=== PATIENT | female | born 1940 | race Caucasian/White ===

== ENCOUNTER 2016-05-08 19:07 | Emergency (ER) | payer MEDICARE, OTHER ==
[~2016-05-08] VITALS: Ht 160 cm; Wt 79.1 kg
[~2016-05-08 19:07] MED LIST: ATEN-39 PO; CALC-6 PO; CEPH500T PO; ELDERBERRY JUICE PO; FISH1CAP28 PO; LEVO100T85 PO; MOME13HF3 INH; MULT-795 PO; OMEP40CA52 PO; PROP10DR2 OP; SIMV20TA89 PO; [UNRECOGNIZED DRUG - CODE] OP
[2016-05-08 19:10] VITALS: Ht 160 cm; Wt 79.1 kg
--- OUTSIDE RECORDS SUMMARY | 2016-05-08 19:12 | XMS REPORT | Continuity of Care Document ---
Author Author [facility] Organization [facility] Address Unknown Phone Unavailable Support Name Relationship Address Phone JUNE, AWILDA M DO Caregiver [address] [address] Unavailable DENIS ESCALANTE DO Caregiver [address] [place] [address] Unavailable MOI BROUSSARD Next Of Kin [address] [place] [address] C Insurance Providers Guarantor Mamta Broussard Address [address] [place] [address] C Email DENIED/NO TO PT PORT Payer Other A Insurance Policy Number [id number] Subscriber's Name ZafarMamta Kavon Relationship 18 Self Group Number [id number] Effective Date 14 Payer Medicare Policy Number [id number] Subscriber's Name Mamta Broussard Relationship 18 Self Effective Date 06 Chief Complaint and Reason for Visit Chief Complaint Abdominal Pain Reason for Visit [id number] Problems Active Problems Medical Problem Onset Date Status HTN (hypertension) Unknown Hypercholesteremia Unknown Hypothyroidism Unknown Migraines Unknown Past Problems Medical Problem Onset Date UTI (urinary tract infection) Unknown Medications Current Home Medications Medication Dose Units Route Directions Days Qty Instructions Start Date Atenolol 50 Mg Tablet 50 Mg Oral Daily 12/10/07 Calcium Carbonate/Vitamin D3 (Os-Chepe 500+D Tablet) 1 Tab Tablet 1 Tab Oral Twice A Day 11/10/08 Carboxymethylcellulos/Glycerin (Optive Eye Drops) 30 Ml Drops 30 Ml Ophthalmic As Needed 12/10/07 Cephalexin 500 Mg Tablet 1 Tab Oral Four Times Daily 10 Days 40 Tablet 09/23/15 Elderberry Juice 1 T Oral Daily 12/10/07 Fish Oil/[place]-3 Fatty Acids ([place] 3 Fish Oil 1,000 Mg Cap) 1 Cap Capsule 1 Cap Oral Daily 12/10/07 Levothyroxine Sodium 100 Mcg Tablet 100 Mcg Oral Daily 12/10/07 Mometasone/Formoterol (Dulera 200 Mcg/5 Mcg Inhaler) 13 Gm Hfa.aer.ad 2 Puffs Inhalation As Needed 09/22/15 Multivitamins W-Minerals/Lut (Centrum Silver Tablet) 1 Tab Tablet 1 Tab Oral Daily 12/10/07 Omeprazole 40 Mg Capsule.dr 1 Cap Oral Daily 09/22/15 Propylene Glycol/Peg 400 (Systane Ultra 0.4-0.3% Eye Drp) 10 Ml Drops 1 Drop Ophthalmic Four Times Daily 09/22/15 Simvastatin 20 Mg Tablet 20 Mg Oral Daily 11/10/08 Past Home Medications Medication Directions Ordered Status Cephalexin (Keflex) 500 Mg Capsule, 1 Cap Oral Four Times Daily 09/23/15 Discontinued Ferrous Sulfate (Slow Fe) 160 Mg Tablet.sa, 47.5 Mg Oral Daily 12/10/07 Discontinued Hydrocodone Bit/Acetaminophen ([place] 7.5/325 Tablet) 1 Tab Tablet, 1 Tab Oral Every 4 Hours as needed 12/13/07 Discontinued Risedronate (Actonel) 35 Mg Tablet, 35 Mg Oral Weekly - On 12/10/07 Discontinued Throat Lozenge , 1 Tanvir Buccal As Needed 11/10/08 Discontinued Warfarin Sodium (Coumadin) 5 Mg Tablet, 2.5 Mg Oral Daily 12/13/07 Discontinued Social History Social History Problem Response Recorded Date/Time Onset Date Status Chewing Tobacco Status No 09/22/2015 11:35pm Not Applicable Not Applicable Hx Substance Use No 09/22/2015 11:35pm Not Applicable Not Applicable Hx Alcohol Use Y MONTHLY 09/22/2015 11:35pm Not Applicable Not Applicable Query Response Start Date Stop Date Smoking Status Never smoker Hospital Discharge Instructions No hospital discharge instructions. Plan of Care Discharge Date 09/23/15 12:43am Disposition 01 DISCHARGED HOME, SELF-CARE Condition at Discharge Stable Instructions/Education Provided DI for Urinary Tract Infection (UTI) Prescriptions See Medication Section Referrals DENIS ESCALANTE DO Address: [address] [place] [address], [place] [phone] Care Plan and Goals Physician Care Plan Problem: UTI Goal: Follow up with primary care provider within 2 days to find out results of urine culture. Instructions: Take medications and follow care plan as discussed/written Functional Status No functional status results. Allergies, Adverse Reactions, Alerts Allergen Type Severity Reaction Status Last Updated Penicillin Allergy Unknown Active 09/22/15 Doxycycline Adverse Reaction Mild n&v Active 09/22/15 Immunizations Query Response on File Recorded Date/Time Hx Influenza Vaccination Y 200811/10/08 10:09am Hx Pneumococcal Vaccination Y 1999, UNSURE 11/10/08 10:09am Hx Influenza Vaccination Y 200811/10/08 10:09am Vital Signs Acute Vital Signs Vital Response Date/Time Temperature (Fahrenheit) 97.7 deg F (96.8 - 99.1) 09/22/2015 11:29pm Temperature (Calculated Celsius) 36.23046 degrees C (36.0 - 37.3) 09/22/2015 11:29pm Pulse Rate (adult) 62 bpm (60 - 100) 09/22/2015 11:29pm Respiratory Rate 17 breaths/min (10 - 20) 09/22/2015 11:29pm O2 Sat by Pulse Oximetry 97 % (90 - 100) 09/22/2015 11:29pm Blood Pressure 213/92 mm Hg 09/22/2015 11:29pm Height (Feet) 5 feet 09/22/2015 11:29pm Height (Inches) 3.00 inches 09/22/2015 11:29pm Weight (Kilograms) 78.600 kg 09/22/2015 11:29pm Body Mass Index (BMI) 30.0 09/22/2015 11:29pm Results Laboratory Results Test Name Result Units Flags Reference Collection Date/Time Result Date/ Time Comments Blood Urea Nitrogen 12.0 MG/DL 7-17 06/29/2015 7:10am 06/29/2015 7: 22am Creatinine 0.7 MG/DL 0.7-1.2 06/29/2015 7:10am 06/29/2015 7:22am Glomerular Filtration Rate Calc 82 06/29/2015 7:10am 06/29/2015 7: 22am Urine Color RED YELLOW 09/22/2015 11:37pm 09/22/2015 11:58pm Urine Turbidity CLOUDY CLEAR 09/22/2015 11:37pm 09/22/2015 11:58pm Urine Specific [place] 1.015 1.015-1.025 09/22/2015 11:37pm 2015 11:58pm Urine pH 7.0 5.0-8.0 09/22/2015 11:37pm 09/22/2015 11:58pm Urine Leukocyte Esterase 3+ A NEGATIVE 09/22/2015 11:37pm 09/22/2015 11:58pm Urine Nitrite POSITIVE A NEGATIVE 09/22/2015 11:37pm 09/22/2015 11: 58pm Urine Protein 2+ A NEGATIVE 09/22/2015 11:37pm 09/22/2015 11:58pm Urine Glucose (UA) NEGATIVE NEGATIVE 09/22/2015 11:37pm 09/22/2015 11 :58pm Urine Ketones NEGATIVE NEGATIVE 09/22/2015 11:37pm 09/22/2015 11: 58pm Urine Urobilinogen 0.2 EU/DL NORMAL 09/22/2015 11:37pm 09/22/2015 11: 58pm Urine Bilirubin NEGATIVE NEGATIVE 09/22/2015 11:37pm 09/22/2015 11: 58pm Urine Blood 3+ A NEGATIVE 09/22/2015 11:37pm 09/22/2015 11:58pm Urine WBC 30-50 /HPF H 0-5 09/22/2015 11:37pm 09/23/2015 12:00am Urine WBC Clumps MANY H 09/22/2015 11:37pm 09/23/2015 12:00am Urine RBC TNTC /HPF H 0-3 09/22/2015 11:37pm 09/23/2015 12:00am Urine Squamous Epithelial Cells 0-5 09/22/2015 11:37pm 09/23/2015 12:00am Urine Bacteria 2+ H NEGATIVE 09/22/2015 11:37pm 09/23/2015 12:00am Urine Culture Indicated CULT REFLEXED &SETUP 09/22/2015 11:37pm 04/2015 12:00am Microbiology Results Procedure Source Organism/Result Collection Date/Time Result Date/Time Result Status Urine Culture Not Provided CULTURE INITIATED - RESULTS PENDING 09/23/2015 12:00am 09/23/2015 12:01am Preliminary Procedures Procedure Status Date Provider(s) ROUTINE VENIPUNCTURE Completed 06/29/15 MRI LUMBAR SPINE W/O & W/DYE Completed 06/29/15 ASSAY OF CREATININE Completed 06/29/15 ASSAY OF UREA NITROGEN Completed 06/29/15 GADAVIST 10ML SDV - Contrast,Gadavist 10ml Completed 06/29/15 CT PELVIS W/O DYE Completed 07/06/15 DXA BONE DENSITY AXIAL Completed 07/06/15 COMP SCREEN MAMMOGRAM ADD-ON Completed 09/16/15 BREAST TOMOSYNTHESIS BI Completed 09/16/15 [id number]"SCREENING MAMMOGRAPHY, PRODUCING DIRECT DIGITAL IMAGE Completed Encounters Encounter Location Arrival/Admit Date Discharge/Depart Date Attending Provider Departed Emergency Room [facility] 09/22/15 11:03pm 09/23/15 12: 43am JUNEAWILDA DO Registered [facility] 09/16/15 8:59am [facility] Registered [facility] 07/06/15 2:15pm DENIS ESCALANTE DO [facility] 06/29/15 7:00am DENIS ESCALANTE DO Recent Diagnosis
--- OUTSIDE RECORDS SUMMARY | 2016-05-08 19:12 | XMS REPORT | Referral Summary ---
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 Role Phone Cliff Fuentes Primary Care Physician [phone] Encounter VC Date(s): 10/15/14 - 10/15/14 [facility] [address] [place] [address] Discharge Diagnosis: Petechial rash Discharge Disposition: 01-Home or Self Care Attending Physician: Enrique Stewart DO Admitting Physician: Enrique Stewart DO Vital Signs Most recent to 1 oldest [Reference Range]: Temperature Tympanic 36.4 degC [36.6-38.1 degC] *LOW* (10/15/14 5:28 PM) Peripheral Pulse 68 bpm Rate [60-100 bpm] (10/15/14 5:28 PM) Blood Pressure 144/68 mmHg [90-140/60-90 mmHg] *HI* (10/15/14 5:28 PM) SpO2 97 % (10/15/14 5:28 PM) Problem List Condition Effective Dates Status Health Status Informant Obesity(Confirmed) Active patient Allergies, Adverse Reactions, Alerts Substance Reaction Severity Status penicillin Active Medications atenolol 100 mg oral tablet 50 mg 0.5 tabs, Oral, BID, 0 Refill(s) Start Date: 10/15/14 Status: Ordered Elvia Low Dose 81 mg, Oral, Daily, 0 Refill(s) Start Date: 10/15/14 Status: Ordered Brovana 15 mcg/2 mL inhalation solution 1 Each, NEB, BID, # 60 Each, 0 Refill(s) Start Date: 10/15/14 Status: Ordered Centrum Silver 1 tabs, Oral, Daily, 0 Refill(s) Start Date: 10/15/14 Status: Ordered Fish Oil 1200 mg oral capsule 2,400 mg 2 caps, Oral, BID, 0 Refill(s) Start Date: 10/15/14 Status: Ordered levothyroxine 88 mcg (0.088 mg) oral tablet 88 mcg 1 tabs, Oral, Daily, # 30 tabs, 0 Refill(s) Start Date: 10/15/14 Status: Ordered omeprazole 40 mg oral delayed release capsule 40 mg 1 caps, Oral, Daily, # 30 caps, 0 Refill(s) Start Date: 10/15/14 Status: Ordered Oystercal-D 2 tabs, Oral, BID, 0 Refill(s) Start Date: 10/15/14 Status: Ordered simvastatin 20 mg oral tablet 20 mg 1 tabs, Oral, Bedtime (once a day), # 30 tabs, 0 Refill(s) Start Date: 10/15/14 Status: Ordered Systane ophthalmic solution 1 drops, Eye-Both, QID, 0 Refill(s) Start Date: 10/15/14 Status: Ordered Vitamin C 500 mg, Oral, Daily, 0 Refill(s) Start Date: 10/15/14 Status: Ordered Results No data available for this section Immunizations No data available for this section Procedures No data available for this section Social History Social History Type Response Smoking Status Never smoker Assessment and Plan Extracted from: Title: Office Visit Note Author: Enrique Stewart DO Date: 10/15/14 Assessment/Plan Petechial rash Pathophysiology of this presentation, and differential diagnosis, discussed in detail with the patient. All questions were answered. 1. CBC done at [facility] was essentially normal. 2. Sedimentation rate and CRP were ordered, reports are pending. 3. Uncertain whether the new medication is causing her presentation however , I advised her to follow-up with her primary care physician in the next couple of days for reevaluation. 4. If she is having worsening presentation, develops nosebleeds or any type of bleeding and feeling ill then she should be evaluated immediately in the emergency department, patient voiced understanding. Ordered: Office Visit Level 4 Est [id number]
--- NOTE | 2016-05-08 19:18 | NUR ---
INFORMATION PT STATES THAT SHE HAS HYPERTENSION, DID NOT TAKE HER BLOOD PRESSURE MEDICINE THIS AM.
--- NOTE | 2016-05-08 19:24 | NUR ---
REPORT GIVEN TO VALERIE LANZA. CARE ASSUMED.
[2016-05-08] MEDS ORDERED: NORMAL SALINE 1,000 ML IV ONE (19:30)
[2016-05-08] MEDS ORDERED: HYDROMORPHONE 2mg/ml INJECTION IV ONE (19:30)
[2016-05-08] MEDS ORDERED: KETOROLAC 30mg/ml INJECTION IV ONE (19:30)
[2016-05-08] MEDS ORDERED: ONDANSETRON 4mg/2ml INJECTION IV ONE (19:30)
[2016-05-08] MEDS ORDERED: GUAI-782 PO (19:38)
[2016-05-08] MEDS ORDERED: LORA10TA62 PO (19:38)
[2016-05-08] MEDS ORDERED: ATEN100T PO (19:39)
[2016-05-08] MEDS ORDERED: LEVO88TA7 PO (19:39)
--- NOTE | 2016-05-08 19:39 | ERPDOC ---
Departure Disposition Decision Date: May 08, 2016 Disposition Decision Time: 20:50 Disposition: 01 DISCHARGED HOME, SELF-CARE Impression Impression Impression: Primary Impression: Influenza B Severity: Severe Condition: Improved Seen By: Physician only Referrals: DENIS ESCALANTE DO (Family) Patient Instructions: Influenza (ED) Problems/Meds/Labs Reviewed?: Yes Medications reviewed and manag: Yes Additional Instructions: You sure albuterol/Proventil inhaler with spacer, 4 puffs 4 times daily Tamiflu 75 mg, one tablet once daily for 5 days Gilman 5 mg one half to one tablet up to 4 times daily as needed for pain or cough Ibuprofen 600 mg 4 times daily for fever and aches Follow up care ordered?: Yes Mental Status: Alert, Oriented Scripts Oseltamivir Phosphate (Tamiflu) 75 Mg Capsule 75 MG PO DAILY, #5 CAP Prov: DENIS QUICK MD 05/08/16 Hydrocodone/Acetaminophen (Gilman 5-325 Tablet) 5-325 Tablet 0.5-1 TAB PO QID Y for cough, #30 Prov: DENIS QUICK MD 05/08/16 HPI - Abdominal Pain General Chief Complaint: Nausea,Vomiting,Diarrhea Stated Complaint: NAUSEA, COUGHING, HEADACHE, BODY ACHES Time Seen by Provider: 19:19 Source: patient, family History/Exam Limitations: no limitations HPI - Abdominal Pain Initial Comments 24 hours of cough, headache, fevers, chills, myalgia, malaise, nausea without vomiting status post fundoplication, and tightness/spasms in the chest wall after cough. Occurred At: home Onset: Rapid Duration: 12-24 hrs Associated Symptoms: chest pain, fatigue, fever/chills, nausea/vomiting, weakness, DENIES: back pain, diaphoresis, headache, heartburn, rash, shortness of breath, swelling/mass in abdomen, syncope Hx of Similar Symptoms: No Allergies: Coded Allergies: Penicillins (Verified Allergy, Unknown, 05/08/16) doxycycline (Verified Adverse Reaction, Mild, n&v, 05/08/16) codeine (Verified Adverse Reaction, Unknown, NAUSEA, 05/08/16) erythromycin base (Verified Adverse Reaction, Unknown, NAUSEA, 05/08/16) Past History Patient Surgical History Thyroid surgery Left knee arthroplasty Cholecystectomy Isaac fundoplication Past Medical History Metabolic: hypercholesterolemia, hypertension GI: GERD Neurological: migraines Surgical History Surgical History Comments Fundoplication Vaccines Hx Influenza Vaccination: Yes (2008) Hx Pneumococcal Vaccination: Yes (1999, UNSURE) Social History Smoking Status: Never smoker Does patient use chewing tobac: No Second Hand Exposure: No Substance Use Type: does not use Alcohol Intake: none Household Members: spouse Record Review Pertinent history updated: Yes Review of Systems Constitutional Constitutional: appetite decrease, chills, fatigue, fever, DENIES: anorexia, appetite increase, dizziness, night sweats, syncope, weakness ENMT Ears: DENIES: pain Hearing: DENIES: hearing loss, tinnitus Balance: DENIES: vertigo Mouth/Throat: DENIES: change in swallowing, change in voice, hoarsness, painful swallowing, sore throat Cardiovascular Cardiac: DENIES: chest pain, dyspnea on exertion Rhythm/Rate: DENIES: irregular beat, palpitations, tachycardia Vascular: DENIES: pedal edema Pulmonary Respiratory: cough, DENIES: dyspnea, hyperventilation, pleuritic chest pain, pneumonia hx, sputum, tachypnea GI Upper Abdomen: nausea, DENIES: dysphagia, heartburn/indigestion, pain, vomiting Lower Abdomen: DENIES: blood in stool, constipation, diarrhea, pain General: DENIES: burning, dysuria, frequency, pain, urgency Musculoskeletal General: DENIES: cramps, joint pain, joint swelling, pain, weakness Integumentary Skin: DENIES: rash, sores Neurological General: DENIES: headache, numbness, tingling, vertigo, weakness Psychiatric Psychiatric: DENIES: anxiety, depression, nervousness Physical Exam General General Nourishment: well nourished, well developed, appears stated age General Body Habitus: well groomed Vitals and Pain First Documented Vital Signs Date Time Temp Pulse Resp B/P Pulse Ox O2 Delivery O2 Flow Rate FiO2 05/08/16 19:10 99.6 97 20 199/89 92 Room Air Weight: Kilograms: 79.100 Height (feet): 5 Height (inches): 3.00 Triage Pain Scale: RN VS reviewed by Provider: Yes Normal Exams: Head: Normocephalic w/o trauma Eyes: Pupils are PERRLA w/ EOMI, No scleral icterus, irritation, or foreign bodies noted ENMT: No facial trauma, nasal exudates, pharyngeal erythema, or exudates are noted Neck (brief) Neck: FOUND: trachea midline, NOT FOUND: JVD, adenopathy, spasm, tenderness, thyromegaly Respiratory (brief) Respiratory: FOUND: clear all richards (coarse bilaterally, reactive cough), equal bilaterally, symmetrical, tenderness (bilateral rib margin tenderness anteriorly), NOT FOUND: rales, wheezes Cardiovascular (brief) Cardiac: FOUND: regular rate, regular rhythm, NOT FOUND: pedal edema Capillary Refill: <2 sec Pulses: all distal extremities, equal, strong Abdomen (brief) Abdominal Brief: FOUND: bowel normo active x4, soft, NOT FOUND: distended, hepatosplenomegaly, tender Lymphatic (brief) Lymphatic Brief: NOT FOUND: adenopathy, lymphedema Musculoskeletal (brief) Musculoskeletal Brief: NOT FOUND: deformity, loss of motion, spasm, tenderness Integumentary (brief) Integumentary Brief: FOUND: dry, pink, warm Neurologic (brief) Neurological Brief: FOUND: CN w/o gross def to obs, motor-no gross deficits, sensory-no gross deficits Psychiatric (brief) Psychiatric Brief: FOUND: alert, attentive, normal affect, oriented Progress Results/Orders Orders Procedure Category Date Status Time Iv Lock (Ed Only) EDM 05/08/16 Transmitted 19:26 Cbc W/Auto LAB 05/08/16 Complete Diff-Reflex Manual Cmp - Comprehensive LAB 05/08/16 Complete Metabolic Influenza A/B Screen LAB 05/08/16 Complete 19:26 Chest, Pa & Lateral RAD 05/08/16 Taken Lipase LAB 05/08/16 Complete Ketorolac (Toradol) PHA 05/08/16 Complete 19:30 Ondansetron Inj PHA 05/08/16 Complete (Zofran) 19:30 Normal Saline (Normal PHA 05/08/16 Complete Saline Iv) 19:30 Hydromorphone PHA 05/08/16 Complete (Dilaudid) 19:30 Albuterol (Proventil) PHA 05/08/16 Complete 20:00 Lab Results Laboratory Tests Test 05/08/16 19:35 05/08/16 20:01 White Blood Count 3.3T/MM3 Red Blood Count 4.42M/MM3 Hemoglobin 13.3GM/DL Hematocrit 39.7% Mean Corpuscular Volume 89.8UM3 Mean Corpuscular Hemoglobin 30.1UUG Mean Corpuscular Hemoglobin Concent 33.5GM/DL RDW Standard Deviation 44.9FL Platelet Count 156T/MM3 Mean Platelet Volume 11.2UM3 Immature Granulocyte % (Auto) 0.3% Neutrophils (%) (Auto) 72.1% Lymphocytes (%) (Auto) 14.1% Monocytes (%) (Auto) 11.7% Eosinophils (%) (Auto) 0.6% Basophils (%) (Auto) 1.2% Absolute Immature Granulocyte (auto 0.01T/MM3 Absolute Neutrophils (auto) 2.4T/MM3 Absolute Lymphocytes (auto) 0.5T/MM3 Absolute Monocytes (auto) 0.4T/MM3 Absolute Eosinophils (auto) 0.0T/MM3 Absolute Basophils (auto) 0.0T/MM3 Turbidity < 20 Sodium Level 143MEQ/L Potassium Level 3.6MEQ/L Chloride Level 107MEQ/L Carbon Dioxide Level 23MEQ/L Anion Gap 13MEQ/L Blood Urea Nitrogen 14.0MG/DL Creatinine 0.7MG/DL Glomerular Filtration Rate Calc 82 BUN/Creatinine Ratio 20RATIO Glucose Level 125MG/DL Calculated Osmolality 277MOSM/KG Calcium Level 8.5MG/DL Total Bilirubin 0.80MG/DL Icterus Index < 2 Aspartate Amino Transf (AST/SGOT) 55U/L Alanine Aminotransferase (ALT/SGPT) 51U/L Alkaline Phosphatase 65U/L Total Protein 7.6G/DL Albumin 4.2G/DL Globulin 3.4G/DL Albumin/Globulin Ratio 1.2RATIO Lipase 155U/L Chemistry Specimen Hemolysis < 15 Influenza Type A Antigen Negative Influenza Type B Antigen Positive Medications Current ED Medications Ketorolac Tromethamine (Toradol) 30 mg O ONCE IV Last administered on 19:59; Start 05/08/16 at 19:30; Stop 05/08/16 at 19:31; Status DC Ondansetron HCl 4 mg 4 mg O ONCE IV Last administered on 05/08/16 19:59; Start 05/08/16 at 19:30; Stop 05/08/16 at 19:31; Status DC Sodium Chloride (Normal Saline IV) 1,000 ml @ 0 mls/hr Q0M ONCE IV Last administered on 05/08/16 19:58; Start 05/08/16 at 19:30; Stop 05/08/16 at 19:31 ; Status DC Hydromorphone HCl (Dilaudid) 0.5 mg O ONCE IV Last administered on 05/08/16 19:58; Start 05/08/16 at 19:30; Stop 05/08/16 at 19:31; Status DC Albuterol (Proventil) 2.5 mg O ONCE AEROSOL Last administered on 05/08/16 19: 58; Start 05/08/16 at 20:00; Stop 05/08/16 at 20:01; Status DC Progress Progress Patient given Dilaudid 0.5 mg IV, Toradol 30 mg IV, Zofran 4 mg IV, albuterol nebulized 1 and 1 L normal saline IV fluid bolus - feeling much better CBC - n CMP/L - n Chest x-ray - n Influenza - influenza B-positive DENIS QUICK MD May 08, 2016 19:39
[2016-05-08] MEDS ORDERED: ALBU8.5H INH (19:43)
[2016-05-08] MEDS ORDERED: ASPI-1099 PO (19:43)
[2016-05-08] MEDS ORDERED: OMEG-92 PO (19:43)
[2016-05-08 19:44] LABS: BASOPHILS % (AUTO) 1.2 % (0-2); EOSINOPHILS % (AUTO) 0.6 % (0-4); HCT - HEMATOCRIT 39.7 % (36-46); HGB - HEMOGLOBIN 13.3 GM/DL (12-16); IMMATURE GRANULOCYTE # (AUTO) 0.01 T/MM3 (0.00-0.03); IMMATURE GRANULOCYTE % (AUTO) 0.3 % (0.0-0.5); LYMPHOCYTES # (AUTO) 0.5 T/MM3 (1-4.8); LYMPHOCYTES % (AUTO) 14.1 % (23-45); MEAN CORPUSCULAR HGB 30.1 UUG (26-34); MEAN CORPUSCULAR HGB CONC(MCHC 33.5 GM/DL (31-37); MEAN CORPUSCULAR VOLUME 89.8 UM3 (80-100); MEAN PLATELET VOLUME 11.2 UM3 (9.4-12.4); MONOCYTES # (AUTO) 0.4 T/MM3 (0-0.8); MONOCYTES % (AUTO) 11.7 % (0-9.0); NEUTROPHILS #(AUTO)-ABSOLUTE 2.4 T/MM3 (1.8-7.7); NEUTROPHILS % (AUTO) 72.1 % (33-66); RED BLOOD COUNT 4.42 M/MM3 (4.00-5.20); WBC - WHITE BLOOD COUNT 3.3 T/MM3 (4.5-11.0)
[2016-05-08] MEDS ORDERED: ASCO-324 PO (19:45)
[2016-05-08] MEDS ORDERED: CALC1TAB PO (19:45)
[2016-05-08] MEDS ORDERED: ACET-62 PO (19:47)
[2016-05-08 19:49] LABS: ALBUMIN 4.2 G/DL (3.5-5.0); ALBUMIN/GLOBULIN RATIO 1.2 RATIO (1.1-2.2); ALKALINE PHOSPHATASE 65 U/L (38-126); ALT (SGPT) 51 U/L (9-52); ANION GAP 13 MEQ/L (5-15); AST (SGOT) 55 U/L (14-36); BUN/CREATININE RATIO 20 RATIO (6-26); CALCIUM 8.5 MG/DL (8.4-10.2); CHLORIDE 107 MEQ/L (98-107); CO2 - CARBON DIOXIDE 23 MEQ/L (22-30); CREATININE 0.7 MG/DL (0.7-1.2); GLOMERULAR FILTRATION RATE 82; GLUCOSE 125 MG/DL (65-110); LIPASE 155 U/L (23-300); POTASSIUM 3.6 MEQ/L (3.6-5); SODIUM 143 MEQ/L (134-144); TOTAL PROTEIN 7.6 G/DL (6.3-8.2)
[2016-05-08] MEDS ORDERED: ALBUTEROL INH.SOLN. 2.5 MG/0.5 ML (0.5%) Neb. AEROSOL ONE (20:00)
--- NOTE | 2016-05-08 20:05 | NUR ---
IMAGING PT TO IMAGING VIA CART
--- NOTE | 2016-05-08 20:15 | NUR ---
IMAGING PT RETURN TO ROOM VIA CART
--- NOTE | 2016-05-08 20:22 | NUR ---
STATUS PT REPORTS IMPROVEMENT IN PAIN AND NAUSEA AT THIS TIME. DENIES NEEDS.
[2016-05-08 20:34] LABS: INFLUENZA A AG SCREEN NEGATIVE (NEGATIVE)
[2016-05-08 20:35] LABS: INFLUENZA B AG SCREEN POSITIVE (NEGATIVE)
[2016-05-08] MEDS ORDERED: HYDR-4246 PO (20:52)
[2016-05-08] MEDS ORDERED: OSEL75CA PO (20:52)
[2016-05-08] MEDS ORDERED: OSELTAMIVIR 75 MG CAPSULE PO ONE (21:00)
[2016-05-08] MEDS ORDERED: HYDROCODONE/APAP 5/325 (PrePack) SENT HOME ONE (21:00)
[2016-05-08 21:28] VITALS: BP 154/70; PULSE 100; RESP 18; TEMP 99.6; O2SAT 91
--- NOTE | 2016-05-08 21:28 | NUR ---
DEPART PT GIVEN DI FOR FLU, NORCO, TAMIFLU, AND F/U. PREPAK PROVIDED FOR TAMIFLU; RX PROVIDED TAMIFLU AND NORCO. PT VERBALIZES UNDERSTANDING OF DI. QUESTIONS ASKED/ANSWERED - DENIES FURTHER QUESTIONS/NEEDS AT THIS TIME. IV SITE REMOVED. PERSONAL BELONGINGS GATHERED. PT REPORTS IMPROVEMENT IN PAIN/NAUSEA. PT AMBULATED/ESCORTED TO ED EXIT - GAIT STABLE, NO SIGN OF DISTRESS.
--- NOTE | 2016-05-09 08:17 | DI ---
INDICATION: ITS.REASON: COUGH, DYSPNEA PROCEDURE: CHEST 2-VIEWS UPRIGHT (PA \T\ LAT) Encounter: Initial Comparison: April 02, 2015 Findings: The lungs are stable in appearance without new focal airspace consolidation. There is no pleural effusion or pneumothorax. The heart size, pulmonary vascularity and mediastinal contours are unchanged. IMPRESSION: Stable appearance of the chest without acute cardiopulmonary disease. .
== END 2016-05-08 21:28 | disposition home or self-care (01) ==
LOC: ED 19:07
DX: J10.1 Influenza due to other identified influenza virus with other respiratory manifestations (principal)
CPT/HCPCS: 71020; 80053; 83690; 85025; 87400; 94640; 96361; 96374; 96375; 99284; A9270; J1170; J1885; J2405; J7030; J7611